=== PATIENT | female | born 1980 | race Two or more races ===

== ENCOUNTER 2019-03-25 07:00 | Emergency (ER) | payer BC, OTHER ==
[~2019-03-25] VITALS: Ht 149.9 cm; Wt 72.6 kg
--- NOTE | 2019-03-25 07:05 | NUR ---
PT BIBSELF C/O NAUSEA X1 DAY. PT DENIES ABDOMINAL PAIN, FEVER, VOMITTING, DIARRHEA, DYSURIA, HEADACHE, DIZZINESS. PT STATES NAUSEA GOT WORSE AFTER DRINKING ENERGY DRINK EARLIER TODAY. PT AAOX4. RESPIRATIONS EVEN AND UNLABORED. SKIN INTACT. ABLE TO AMBULATE WITH STEADY GAIT. NO ACUTE DISTRESS NOTED AT THIS TIME. WILL CONTINUE TO MONITOR.
--- NOTE | 2019-03-25 07:16 | NUR ---
URINE COLLECTED AND SENT TO LAB
[2019-03-25] MEDS ORDERED: ONDANSETRON 4 MG TAB.RAPDIS ONE (07:18)
[2019-03-25] MEDS ORDERED: ONDANSETRON HCL 4 MG/5 ML SOLUTION PO ONE (07:30)
[2019-03-25 07:45] LABS: APPEARANCE,URINE Clear (CLEAR); BILIRUBIN,URINE SMALL (NEGATIVE); BLOOD, URINE Small Ery/uL (NEGATIVE); COLOR,URINE Yellow (YELLOW); KETONES,URINE 15 (NEGATIVE); LEUKOCYTE ESTERASE ,URINE Negative (NEGATIVE); NITRITE, URINE Negative (NEGATIVE); PH,URINE 5.5 (5.0-8.0); PROTEIN,URINE Negative (NEGATIVE); UGLUCOSE Negative (NEGATIVE)
[2019-03-25 07:46] LABS: CALCIUM, SERUM 8.9 mg/dL (8.5-10.1); CREATININE 0.7 mg/dL (0.6-1.3); POTASSIUM 3.5 mmol/L (3.5-5.1)
[2019-03-25 07:49] LABS: BACTERIA,URINE Few /HPF (None Seen); SQUAMOUS EPITHELIAL CELL,UR Few /HPF (None Seen); WBC,URINE 0-2 /HPF (0-3)
[2019-03-25 07:52] LABS: ALBUMIN 3.7 g/dL (3.4-5.0); BILIRUBIN,DIRECT 0.1 mg/dL (0.0-0.2); BILIRUBIN,TOTAL 0.4 mg/dL (0.2-1.0); TOTAL PROTEIN, SERUM 8.4 g/dL (6.4-8.2)
--- NOTE | 2019-03-25 08:11 | NUR ---
Patient discharged to home in stable condition. Written and verbal after care instructions given. Patient verbalizes understanding of instruction.
[2019-03-25 08:12] VITALS: BP 113/68
== END 2019-03-25 08:15 | disposition home or self-care (01) ==
LOC: ER 07:00
DX: R11.0 Nausea (principal); R05 Cough; Z98.890 Other specified postprocedural states
CPT/HCPCS: 36415; 71045; 80048; 80076; 81001; 83690; 84703; 99284; Q0162; 81000-TC

== ENCOUNTER 2019-05-04 21:56 | Emergency (ER) | payer BC, OTHER ==
[~2019-05-04] VITALS: Ht 149.9 cm; Wt 72.6 kg
[2019-05-04 22:08] VITALS: BP 125/68
== END 2019-05-04 22:28 | disposition home or self-care (01) ==
LOC: ER 21:56
DX: J06.9 Acute upper respiratory infection, unspecified (principal); Z98.890 Other specified postprocedural states

== ENCOUNTER 2020-01-02 21:40 | Emergency (ER) | payer BC, MEDICAID, OTHER ==
[~2020-01-02] VITALS: Ht 149.9 cm; Wt 79.4 kg
[2020-01-02] MEDS ORDERED: DICYCLOMINE HCL 10 MG CAPSULE PO ONE ×2 (22:14→22:30)
[2020-01-02] MEDS ORDERED: ONDANSETRON HCL/PF 4 MG/2 ML VIAL ONE (22:14)
--- NOTE | 2020-01-02 22:26 | NUR ---
BIBS FOR C/O WEAKNESS, DIARRHEA AND MILD ABD PAIN X 1 DAY TO ER BED 4, VSS BLOOD SENT TO LAB, ORDERS RECEIVED AND CARRIED OUT
[2020-01-02 22:29] LABS: BASOPHILS % (AUTO) 0.2 % (0.0-2.0); EOSINOPHILS % (AUTO) 0.2 % (0.0-6.0); HEMATOCRIT 38 % (33-45); LYMPHOCYTES % (AUTO) 11.5 % (20.0-44.0); MEAN CORPUSCULAR HGB CONC 34 g/dl (31.0-36.0); MEAN CORPUSCULAR VOLUME 89 fL (82-100); MONOCYTES # (AUTO) 0.3 /CMM (0.1-1.30); MONOCYTES % (AUTO) 3.3 % (2.0-12.0); NEUTROPHILS # (AUTO) 7.1 /CMM (1.8-8.9); NEUTROPHILS % (AUTO) 84.8 % (43.0-81.0); PLATELET COUNT (AUTO) 281 /CMM (150-450); RED BLOOD CELL COUNT(AUTO) 4.31 MIL/uL (4.0-5.2); WHITE BLOOD COUNT (AUTO) 8.3 K/uL (4.3-11.0)
[2020-01-02] MEDS ORDERED: ONDANSETRON HCL/PF 4 MG/2 ML VIAL IVP ONE (22:30)
[2020-01-02] MEDS ORDERED: IV NS 0.9% 1,000 ML BAG IV ONE (22:30)
[2020-01-02 22:39] LABS: CALCIUM, SERUM 8.3 mg/dL (8.5-10.1); CREATININE 0.7 mg/dL (0.6-1.3); POTASSIUM 3.6 mmol/L (3.5-5.1)
[2020-01-02 22:45] LABS: ALBUMIN 3.4 g/dL (3.4-5.0); BILIRUBIN,DIRECT 0.1 mg/dL (0.0-0.2); BILIRUBIN,TOTAL 0.3 mg/dL (0.2-1.0); TOTAL PROTEIN, SERUM 7.7 g/dL (6.4-8.2)
--- NOTE | 2020-01-02 23:15 | NUR ---
Patient discharged to home in stable condition. Written and verbal after care instructions given. Patient verbalizes understanding of instruction.IV removed. Catheter intact and site benign. Pressure and 4x4 applied to site. No bleeding noted.
[2020-01-02 23:16] VITALS: BP 106/56
== END 2020-01-02 23:17 | disposition home or self-care (01) ==
LOC: ER 21:41
DX: R19.7 Diarrhea, unspecified (principal); R53.1 Weakness; R10.84 Generalized abdominal pain; Z98.890 Other specified postprocedural states
CPT/HCPCS: 36415; 80048; 80076; 83690; 84702; 85025; 85730; 96361; 96374; 99283; J2405; J7030

== ENCOUNTER 2020-07-23 20:30 | Emergency (ER) | payer MEDICAID ==
[~2020-07-23] VITALS: Ht 149.9 cm; Wt 72.6 kg
[2020-07-23 20:30] VITALS: BP 132/64
[2020-07-23] MEDS ORDERED: DEXAMETHASONE SOD PHOSPHATE 10 MG/ML VIAL ONE (21:38)
[2020-07-23] MEDS ORDERED: DEXAMETHASONE SOD PHOSPHATE 4 MG/ML VIAL IM ONE (22:00)
== END 2020-07-23 21:48 | disposition home or self-care (01) ==
LOC: ER 20:33
DX: U07.1 COVID-19 (principal); J02.9 Acute pharyngitis, unspecified
CPT/HCPCS: 87070; 87880; 96372; 99283; J1100; 86403-TC